=== PATIENT | male | born 1955 | race Caucasian/White ===

== ENCOUNTER → 2023-12-22 08:32 | Outpatient (REF) | payer BC, SELFPAY | LOC: HWRAD 08:32 | PROVIDERS: ATTENDING PHYSICIAN Surgery | DX: Z86.010 Personal history of colon polyps (principal) ==

== ENCOUNTER 2024-05-17 06:50 | Day surgery (SDC) | payer BC, SELFPAY ==
[2024-04-30 10:24] VITALS: BMI 35.8
[2024-04-30 10:43] LABS: Hematocrit 43.9 % (39.0-52.0); Hemoglobin 14.6 g/dL (13.0-18.0); Mean Corp Hgb Conc. 33.3 g/dL (33.0-37.0); Mean Corpuscular Volume 87.3 fL (80.0-94.0); Mean Platelet Volume 11.1 fL (7.4-10.4); Platelet Count 274 10^3/uL (130-400); Red Blood Cell Count 5.03 10^6/uL (4.70-6.10); Red Cell Dist. Width 12.9 % (11.5-14.5); White Blood Cell Count 9.4 10^3/uL (4.8-10.8)
[2024-04-30 11:18] LABS: Blood Urea Nitrogen 16 mg/dl (9-20); Carbon Dioxide 24 mmol/L (22-30); Chloride 105 mmol/L (98-107); Estimated Creatinine Clearance 113 ml/min; Glucose 134 mg/dl (70-99); Potassium 4.8 mmol/L (3.5-5.1); Sodium 142 mmol/L (135-145); eGFR > 60.00
[2024-05-17] VITALS (15 sets, daily range): BP systolic 0–157; BP diastolic 64–87; BMI 35.8; BMI 36.4
[2024-05-17] MEDS: TYLENOL 1000 MG PO (13:31)
--- NOTE | 2024-05-17 13:48 | HP.FOC2 ---
Focused History & Physical
Chief Complaint
HPI:
Chief Complaint: Right lower quadrant incisional hernia
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 Postoperative
left calf DVT. Postoperative right lower quadrant subcutaneous abscess treated with IR guided percutaneous drainage and I&D. Subsequent takedown loop ileostomy and primary closure parastomal hernia site 06/19/2023 which she recovered uneventfully
from.
Has had a few month history of swelling in the right lower quadrant at his previous ostomy site. It has increased in size since noticing. Increasingly uncomfortable but no significant pain. Utilizes a binder to help support it. CT imaging
confirms approximately 5 cm x 4 cm right lower quadrant incisional hernia. Presents today for scheduled operative correction.
Relevant Past Medical History: Other (GABRIEL-not using CPAP, hypertension, osteoarthritis right knee, BPH, Neda's syndrome, history of PE status post right total knee, history of DVT)
Relevant Social History: Negative
Relevant Family History: Negative
Relevant Past Surgical History: Positive for (Right total knee replacement, cataracts, detached retina surgery, sigmoidectomy with diverting loop ileostomy, reversal of loop ileostomy)
Review of Systems
Review of Pertinent Systems: All Systems Negative
Medication
See Medication form for detailed medications: Yes
Medication List (including Herbals & OTC):
terazosin 2 mg capsule 2 mg PO HS bph ##0 02/05/23
Medications Reviewed: Yes
Allergies and Reactions
Patient has Allergies: Yes
Noted Allergies and Reactions:
Allergy/AdvReac Type Severity Reaction Status Date / Time
lisinopril Allergy Intermediate Cough Verified 05/17/24 13:28
Pertinent Physical Exam
All Other Systems: Negative
Head/Neck: Normal
Lungs: Normal
Heart: Normal
Abdomen: Other (Right lower quadrant incisional hernia)
Extremities: Normal
Neurological: Normal
Diagnosis / Assessment
68-year-old male presenting for scheduled operative correction right lower quadrant incisional hernia
Plan / Procedure
Robotic assisted laparoscopic repair right lower quadrant incisional hernia with mesh
Anesthesia/Sedation to be done by Anesthesia Provider: Yes
[2024-05-17] MEDS: LOVENOX 40 MG SC (13:51)
--- NOTE | 2024-05-17 13:52 | W.SUR.PREOP ---
Pre-Operative Surgical Note
-
I have examined this patient prior to the performance of the scheduled procedure.
The patient's condition is unchanged from the time of the current History and
Physical and the patient is able to undergo the scheduled procedure.
--- NOTE | 2024-05-17 18:16 | W.IMMPOSTOP ---
Addendum entered and electronically signed by Franklin Smith MD 05/19/24 07:49:
#[id number]
Original Note:
Surgical Immed Post Op Note
-
Primary Surgeon: Luis
Assisting Surgeon: Hue Rodriguez PA-C
Pre-op Diagnosis: Right lower quadrant incisional hernia
Post-op Diagnosis: Right lower quadrant incisional hernia; periumbilical incisional hernias (total hernia spanning length of 12 cm including fascial bridge); right lower quadrant abdominal wall adhesions and hernia sac adhesions.
Procedure Performed: Robotic assisted laparoscopic lysis of adhesions (encompassing 1 hour of additional operative time)
Robotic assisted laparoscopic right transversus abdominis myofascial release
Robotic assisted laparoscopic retromuscular mesh repair incisional hernias; Bard soft mesh 20 x 20 cm
Anesthesia Type: GETA +0.25% Marcaine
Specimen / Cultures: None
Estimated Blood Loss: 16 mL
Complications: None immediate
Operative Findings: Right lower quadrant small bowel adhesions entirely covering hernia, hernia sac and surrounding abdominal wall. Careful lysis to reduce hernia contents and free abdominal wall from adhesions for hernia added 1 full hour of
additional operative time within expectations of this typical procedure. Incisional hernia at old ostomy site measured 6 cm vertically and 4 cm in width. There was approximately a 5 cm bridge between this and multiple small fascial defects in the
periumbilical region which added an additional 3 cm. Altogether these defects encompassed a total length of 12 cm. Fascial defects all closed with 0 PDS STRATAFIX symmetric suture in running continuous manner. Posterior sheath at right lower
quadrant incisional hernia closed with 2-0 PDS STRATAFIX spiral.
Right sided transversus abdominis myofascial release to allow for reduced closure of right lower quadrant incisional hernia and underlay mesh repair.
Bard soft mesh 20 x 20 cm in the retrorectus and submuscular underlay location. Secured with numerous interrupted 2-0 Vicryl suture centrally and to medial and lateral borders.
Peritoneal flap closed with 2-0 Monocryl STRATAFIX spiral.
Drains: 19 Armand into the retrorectus space.
Plan: PRN analgesics and antiemetics
DC Batista in a.m.
Lovenox administered preoperatively for VTE prophylaxis
Advance diet as tolerated monitoring for possible signs of ileus
Maintain JUAN
Patient's son updated postoperatively via phone call
[2024-05-17] MEDS: LR 1000 IV (19:00)
[2024-05-17] MEDS: ACUVAIL 1 DROPS OPHTH (19:25)
--- NOTE | 2024-05-17 19:32 | SUR.PHASEI ---
Dr. Nguyen notified pt complaining of right eye irritation. Ketorolac eye drop ordered to right eye and administered as ordered.
[2024-05-17] MEDS: DILAUDID 0.5 MG IV (21:02)
[2024-05-17] MEDS: ACULAR 0.5% EYE DROPS 1 DROP OPHTH (21:03)
--- NOTE | 2024-05-17 21:30 | PTCARENOTE ---
Report received from Ellyn in PACU. Pt received in hospital bed AAOx3, c/o pain and irritation to the R eye, denies abd pain and nausea at this time. Pt tolerating 3L O2 NC with SpO2 100%, does not wear O2 at home but does report a hx of GABRIEL without
CPAP/BiPAP, weaned to 2L O2 NC with SpO2 97%. +bowel sounds x4 quadrants, abd round and tender. 3 lap sites present, approximated with dermabond intact. Batista catheter in place draining clear yellow urine. TEDs/SCD's in place. LR infusing @ 120mL/hr
per order. Remainder of assessment as documented. Pt ordered clear liquid diet, tolerating ice water/red dipesh intake without N/V/abd pain. Pt and son at the bedside updated on POC. Oriented to unit and call vanegas, resting comfortably in bed at this
time.
[2024-05-17] MEDS: HYTRIN 2 MG PO (23:17)
[2024-05-18 00:15] VITALS: BP 133/66
[2024-05-18] MEDS: DILAUDID 1 MG IV (01:21)
[2024-05-18 02:15] VITALS: BP 96/53
[2024-05-18] MEDS: LR 1000 IV (03:38)
[2024-05-18 03:46] VITALS: BP 104/61
[2024-05-18 06:40] LABS: Hematocrit 42.5 % (39.0-52.0); Hemoglobin 13.8 g/dL (13.0-18.0); Mean Corp Hgb Conc. 32.5 g/dL (33.0-37.0); Mean Corpuscular Hgb 28.4 pg (27.0-31.0); Mean Corpuscular Volume 87.4 fL (80.0-94.0); Mean Platelet Volume 10.8 fL (7.4-10.4); Platelet Count 256 10^3/uL (130-400); Red Blood Cell Count 4.86 10^6/uL (4.70-6.10); Red Cell Dist. Width 13.3 % (11.5-14.5); White Blood Cell Count 13.7 10^3/uL (4.8-10.8)
[2024-05-18 06:59] LABS: Blood Urea Nitrogen 17 mg/dl (9-20); Calcium 9.3 mg/dl (8.4-10.2); Carbon Dioxide 23 mmol/L (22-30); Chloride 105 mmol/L (98-107); Estimated Creatinine Clearance > 125 ml/min; Glucose 123 mg/dl (70-99); Sodium 140 mmol/L (135-145); eGFR > 60.00
--- NOTE | 2024-05-18 07:12 | W.PN.GS2 ---
Today's Communication / Plan
-
`
Assessment / Plan
-
Assessment: 68 y/o male POD#1 s/p RAL ZIGGY, right sided TAR, retromuscular repair incisional hernias (12cm total length) with mesh
AFVSS
doing well post op
JUAN with typical character and quanitity overnight
Plan: multimodal pain med options
clear liquid diet and advance as tolerated monitoring for signs of ileus
OOBTC/ambulate
JUAN - will be d/c'd with JUAN in place
mcgrath out dtv
lovenox/scds/ambulation for VTEp - will d/c home on 10days eliquis 2.5mg BID d/t prior DVT hx x2
possible d/c home later today vs tomorrow
Subjective Data
-
Date of Service: May 18, 2024
pt seen and examined
postop pain controlled well
no nausea, ordered clears for breakfast
mcgrath out this AM
Objective Data
-
Intake and Output
05/17/24 05/18/24 05/19/24
06:59 06:59 06:59
Intake Total 1950 / 1950
Output Total 825 / 825
Balance 1125 / 1125
Intake:
Oral fluids 480 / 480
IV fluids (Total) 1470 / 1470
LR 120 / 120
NSS 150 / 150
Output:
Drain Output (Total) 0 / 0
Right Abdomen [facility] 0 / 0
Urine, Mcgrath 825 / 825
Vital Signs
Temp Pulse Resp BP Pulse Ox
97.9 F 66 16 104/61 93
05/18/24 03:46 05/18/24 03:46 05/18/24 03:46 05/18/24 03:46 05/18/24 03:46
Lab Results
05/18/24 05:53
05/18/24 05:53
Calcium 9.3 mg/dl (8.4-10.2) 05/18/24 05:53
Physical Exam
-
NAD AAOx3
ABD: soft, ND, mild TTP right sided and midline, no R/R/G
incisions with glue dressings
JUAN with SSF-bloody
[2024-05-18] MEDS: COLACE 100 MG PO (07:18)
[2024-05-18] MEDS: ACULAR 0.5% EYE DROPS 1 DROP OPHTH ×2 (07:18→12:53)
[2024-05-18 07:23] VITALS: BP 128/75
[2024-05-18 07:45] VITALS: BMI 36.4
--- NOTE | 2024-05-18 13:17 | CM ---
Addendum entered by Tracee Marie 05/18/24 13:21:
PCP: Jose Pereyra
Pharmacy: [address], [place]
Original Note:
Patient seen at bedside
DX: s/p SONIA ANDERSONA, right sided TAR, retromuscular repair incisional hernias
Lives in a 3 story home alone, 6 steps to enter, 13 steps to second floor
PLOF: Ambulating without deviceD
Denies DME
Options reviewed for [facility]N - prefer [facility]
Referral placed in [facility]. Notified Stephanie liaison
PLAN: Home, [facility]
--- NOTE | 2024-05-18 14:54 | VNURNOTE ---
Home Health Liaison met with patient at bedside to discuss [facility] nurse/therapy, visits, schedule and homebound status. Patient is agreeable and understands that visits at home will be 2-3 x per week to assess and teach medical management, drain care.
[facility] brochure provided with contact information. Patient is aware that [facility] will contact them for start of care in 1-2 days after discharge from .
[facility] referral completed in [facility].
[2024-05-18 15:20] VITALS: BP 139/74
--- NOTE | 2024-05-18 15:28 | W.PN.SURGUPD ---
Surgical Update
Surgical Update
Patient seen in follow-up this afternoon. Postoperative pain adequately controlled without narcotics today.
Tolerating dietary advancement
No nausea, no abdominal bloating or distention
Not passing flatus but feels some digestive grumbling
Patient's preference is for discharge home today
JUAN remains serosanguineous not overly bloody
DC home
JUNA care instructions provided
Given previous history of DVT will discharge with 10-day course of prophylactic Eliquis dosing (patient aware will pay [id number] medication)
Follow-up with myself in 1 to 2 weeks when daily outputs on JUAN diminished to 20 mL every 24 hours for 2 days
--- NOTE | 2024-05-18 15:33 | W.DS.TRANS ---
DC Summary - [employer]
-
Discharge Instructions:
Discharge Diagnosis/Procedures Incisional hernias; robotic assisted
laparoscopic repair incisional hernias with mesh
, lysis of adhesions
Diet As tolerated,Regular
Additional Diets Smaller meals initially after surgery as
abdominal bloating and distention are common for
the first few days
Activity No strenuous activity
Additional Activity No lifting over 20 pounds for 6 weeks
postoperatively
Driving Restrictions No driving for 2 to 3 days or if using narcotics
Bathing Restrictions OK to Shower
Other Services VN
Wound Care Glue at surgical sites typically peels off in 2
to 3 weeks. Keep JUAN to bulb suction. Empty 2-3
times a day, measure drain outputs and keep
paper record. Dry gauze dressing at skin exit
site from drain, change daily and as needed.
Instructions: [facility] Drain
How to Keep Track of Your Drainage
Stand-Alone Forms:
Changes to Home Medications: No
Discharge Medications:
DC Medications w/original date entered in [employer]
terazosin 2 mg capsule 2 mg PO HS bph ##0 02/05/23
acetaminophen 500 mg tablet (Tylenol Extra Strength) 1,000 mg (2 x 500 mg) PO Q6HPRN PRN mild pain #1 tab 05/18/24
apixaban 2.5 mg tablet (Eliquis) 2.5 mg PO BID 10 days #20 tabs 05/18/24
oxycodone 5 mg tablet 5 mg PO Q4HPRN PRN breakthrough/severe pain #7 tabs 05/18/24
polyethylene glycol 3350 17 gram/dose oral powder (Miralax) 4 g PO DAILY PRN Constipation #119 grams 05/18/24
Home Medication Changes
Pending Results: No
== END 2024-05-18 16:40 | disposition home or self-care (01) ==
LOC: SDS 06:50
PROVIDERS: ATTENDING PHYSICIAN Surgery; FAMILY PHYSICIAN Nurse Practitioner Family; OTHER PHYSICIAN Internal Medicine Hematology & Oncology
DX: K43.2 Incisional hernia without obstruction or gangrene (principal); K66.0 Peritoneal adhesions (postprocedural) (postinfection)
CPT/HCPCS: 49593; 36415; 80048; 85027; 93005; C1781

== ENCOUNTER 2024-08-09 06:02 | Day surgery (SDC) | payer BC, SELFPAY ==
[2024-08-09 06:10] VITALS: BMI 34.9
[2024-08-09 06:20] VITALS: BP 147/94
[2024-08-09 06:25] VITALS: BMI 34.9
[2024-08-09] MEDS: NORMOSOL-R/PLASMALYTE-A 1000 IV (06:31)
[2024-08-09] MEDS: TYLENOL 1000 MG PO (06:31)
--- NOTE | 2024-08-09 06:45 | HP.FOC2 ---
Focused History & Physical
Chief Complaint
HPI:
Chief Complaint: Lipoma
HPI / Indication for Planned Procedure: Patient is a 68-year-old male with history of a visible bump/swelling over the right scapular area. Present for many years and slowly increasing in size. Presents today for surgical excision.
Relevant Past Medical History: Other (GABRIEL, hypertension, osteoarthritis, BPH, history of retinal detachment, Neda's syndrome, history PE/DVT, history diverticulosis, elevated PSA)
Relevant Social History: Negative
Relevant Family History: Negative
Relevant Past Surgical History: Positive for (Arthroscopic knee surgeries, cataracts, right total knee replacement, sigmoidectomy with diverting loop ileostomy, reversal of ileostomy, robotic incisional hernia repair)
Review of Systems
Review of Pertinent Systems: All Systems Negative
Medication
See Medication form for detailed medications: Yes
Medication List (including Herbals & OTC):
terazosin 2 mg capsule 2 mg PO HS bph ##0 02/05/23
Medications Reviewed: Yes
Allergies and Reactions
Patient has Allergies: Yes
Noted Allergies and Reactions:
Allergy/AdvReac Type Severity Reaction Status Date / Time
lisinopril AdvReac Cough Verified 08/09/24 06:27
Pertinent Physical Exam
All Other Systems: Negative
Head/Neck: Normal
Lungs: Normal
Heart: Normal
Abdomen: Normal
Extremities: Normal
Neurological: Normal
Other: Soft mobile subcutaneous mass in the right posterior back/scapular area 5cm
Diagnosis / Assessment
68-year-old male with right posterior back/scapular subcutaneous lipoma
Plan / Procedure
Excision subcutaneous lipoma
Anesthesia/Sedation to be done by Anesthesia Provider: Yes
[2024-08-09 07:56] VITALS: BP 130/88
[2024-08-09 08:01] VITALS: BP 146/89
--- NOTE | 2024-08-09 08:10 | W.IMMPOSTOP ---
Addendum entered and electronically signed by Franklin Smith MD 08/09/24 08:17:
#[id number]
Original Note:
Surgical Immed Post Op Note
-
Primary Surgeon: Franklin Smith MD
Assisting Surgeon: REBECA Lopez
Pre-op Diagnosis: Right scapular subcutaneous lipoma
Post-op Diagnosis: Right scapular subcutaneous lipoma; 4 cm
Procedure Performed: Excision of right scapular subcutaneous lipoma
Anesthesia Type: MAC +1% lidocaine/0.25% Marcaine with epi
Specimen / Cultures: Lipoma
Estimated Blood Loss: 4 mL
Complications: None immediate
Operative Findings: Right scapular subcutaneous lipoma adjacent to trapezius muscle. Well encapsulated, excised in its entirety. 4 cm maximal dimension. Multilayer closure.
[2024-08-09 08:15] VITALS: BP 153/86
[2024-08-09 08:30] VITALS: BP 155/83
== END 2024-08-09 09:00 | disposition home or self-care (01) ==
LOC: SDS 06:02
PROVIDERS: ATTENDING PHYSICIAN Surgery
DX: D17.1 Benign lipomatous neoplasm of skin and subcutaneous tissue of trunk (principal); G47.33 Obstructive sleep apnea (adult) (pediatric); I10 Essential (primary) hypertension; M19.90 Unspecified osteoarthritis, unspecified site; N40.0 Benign prostatic hyperplasia without lower urinary tract symptoms; Z86.718 Personal history of other venous thrombosis and embolism; Z88.8 Allergy status to other drugs, medicaments and biological substances
CPT/HCPCS: 21931; 88304

== ENCOUNTER 2024-12-19 08:10 | Emergency (ER) | payer BC, MEDICARE, SELFPAY ==
[2024-12-19 08:12] VITALS: BP 125/84
[2024-12-19 08:20] VITALS: BMI 37.5
--- NOTE | 2024-12-19 08:30 | ED.GENMED ---
History of Present Illness
General
Chief Complaint: Breathing Problem
Source: patient
Exam Limitations: none
Time Seen by Provider: 12/19/24 08:17
Nursing documentation reviewed up to this point in time: agreed with
History of Present Illness
History of Present Illness:
see mdm
Past History
Past History
ED Past Medical History: Cancer (Skin), HTN and Other (PE/DVT, Sleep apnea, Diverticulitis, )
ED Past Surgical History: Bowel resection (with Ileostomy), Orthopedic (Right knee replacemet) and Other (Cataract surgery right with retina torn, Intestinal stent)
Social History
Tobacco: Former smoker
Alcohol: None
Drug: None
Personal:
Living: with family
Employment: Employed
Phy Exam
Physical Exam
Physical Exam:
GENERAL: Alert , in no apparent distress
EYE: pupils equal and reactive
NECK: Supple
ENT: o/p clr, mmm.
CARDIAC: Regular rate and rhythm .
LUNGS: No respiratory distress, pleuritic pain with splinting on the right side with a deep breath, crackles in the right base, no cough
ABDOMEN: Soft, without focal tenderness, no r/g, no cvat, normal bowel sounds
NEUROLOGICAL: Alert and oriented, no focal neuro deficits
SKIN: Warm and dry, skin intact.
MUSCULOSKELETAL: No edema, well perfused. neg sam's sign
PSYCH: Normal and appropriate interaction.
Scores
Heart Failure Risk
Heart Failure Risk Score: Not Applicable
Course
Orders/Labs/Results
Orders:
Orders
12/19/24 08:15
Electrocardiogram (*1) Urgent
Reason for Study: Shortness of Breath
EKG- Treatment ONCE
12/19/24 08:26
CT Chest PE Study Urgent
Comment:
Reason For Exam: pleuritic R cp x 2 days; h/o PE
US Periph Venous LOWER Ext Rob Urgent
Comment:
Reason For Exam: calf pain, h/o dvt
12/19/24 08:37
Complete Blood Count/With Diff Urgent
Comprehensive Metabolic Panel Urgent
NT-proBNP Urgent
PTT Urgent
Prothrombin Time Urgent
Troponin I Urgent
12/19/24 09:05
COVID-19 Antigen Urgent
Source: Nasal Swab
12/19/24 10:59
Apixaban [Eliquis] 10 mg PO NOW STA
Abnormal Lab Results
12/19/24
08:37
WBC 13.8 H 10^3/uL
(4.8-10.8)
MPV 10.7 H fL
(7.4-10.4)
Abs Immat Gran (auto) 0.1 H 10^3/uL
(0-0.05)
Absolute Neuts (auto) 10.5 H 10^3/uL
(1.4-6.5)
Absolute Monos (auto) 1.4 H 10^3/uL
(0.1-0.6)
Neutrophils % 75.8 H %
(42.2-75.2)
Lymphocytes % 12.9 L %
(20.5-51.1)
Monocytes % 10.1 H %
(1.7-9.3)
Chloride 110 H mmol/L
(98-107)
Carbon Dioxide 21 L mmol/L
(22-30)
Glucose 149 H mg/dl
(70-99)
Total Bilirubin 1.5 H mg/dl
(0.2-1.3)
12/19/24 08:37
12/19/24 08:37
Vital Signs
Initial and Last Documented VS:
Initial Vital Signs
Temp Pulse Resp BP Pulse Ox
37.1 C 98 18 125/84 94
12/19/24 08:12 12/19/24 08:12 12/19/24 08:12 12/19/24 08:12 12/19/24 08:12
Last Documented Vital Signs
Temp Pulse Resp BP Pulse Ox
37.1 C 83 21 128/79 93
12/19/24 08:12 12/19/24 11:45 12/19/24 11:45 12/19/24 11:00 12/19/24 11:45
MDM/Problems Addressed
Differential Diagnosis Includes:
see mdm
MDM/Problems Addressed:
Note:
CHIEF COMPLAINT(S)
Shortness of breath and pleuritic chest pain.
HISTORY OF PRESENT ILLNESS
The patient is a 69-year-old male with a past medical history significant for pulmonary embolism and deep vein thrombosis, presenting with acute onset shortness of breath and pleuritic chest pain. The patient reports that this episode is similar to
previous experiences when he had a pulmonary embolism. The pain worsens with deep breathing but is minimal to none at rest. The onset was recent, and pain intensity is rated at 1/10 at rest and increases significantly with deep inspiration. The
patient describes a mild cough and had a low-grade fever last night, for which he took ibuprofen this morning. He denies recent surgery but reports increased driving recently. He has a history of blood clots in the lung following knee surgery
approximately four years ago and a clot in the leg after intestinal surgery around the same period; both were managed with anticoagulation therapy, specifically apixaban (Eliquis), for six months. The patient was tested for clotting disorders
previously, but no definitive results were mentioned. He has no known heart disease, has not had cardiac tests, and does not follow with a hand cooper helper.
ADDITIONAL HISTORY OBTAINED FROM SOURCES OTHER THAN THE PATIENT
According to the patient, he has a history of smoking cigars currently and previous cigarette smoking but quit approximately in his 30s. No recent alcohol use was reported.
CHRONIC MEDICAL CONDITIONS SIGNIFICANTLY AFFECTING CARE
Chronic conditions affecting care: history of pulmonary embolism and deep vein thrombosis.
ALLERGIES
No known drug allergies.
PAST MEDICAL HISTORY
History of pulmonary embolism and deep vein thrombosis.
PAST SURGICAL HISTORY
Right lung pulmonary embolism post-knee surgery and deep vein thrombosis post-bowel resection.
SOCIAL HISTORY
Current cigar smoker, ex-cigarette smoker, no alcohol use.
REVIEW OF SYSTEMS
- Respiratory: Shortness of breath, pleuritic chest pain, minimal cough, no significant sputum production.
- General: Recent fever.
- Cardiovascular: No known history of heart disease.
PHYSICAL EXAM
- Nursing notes reviewed and vital signs reviewed.
- Respiratory: Breath sounds with R lower lobe crackles, presumption of possible fluid presence.
no edema in legs
neg sam's sign
resting comfortably; no tachypnea
PLAN
The patient will undergo a CT scan of the chest to evaluate for potential pulmonary embolism or other intrathoracic pathology, such as pleural effusion. Assessment for deep vein thrombosis will also be considered.
DIFFERENTIAL DIAGNOSIS
The Differential Diagnosis includes, in no particular order and is not limited to:
1. Pulmonary embolism
2. Pneumonia
3. Pleuritis
4. Costochondritis
5. Pneumothorax
6. Myocardial infarction
7. Congestive heart failure
8. Pleural effusion
9. Upper respiratory tract infection
Patient CT reported right pulmonary artery segmental PE. Patient is hemodynamically stable, no evidence of right heart strain, normal troponin negative BNP, normal pulse ox. He is not in any distress. I reviewed this case with photoengraver apprentice
gila his Pasi score is low risk. Patient can be treated with Eliquis as an outpatient and have close pulmonary follow-up. It sounds as if he will require anticoagulation long-term.
Patient will return for any significant worsening symptoms
*Pulse Oximetry
SaO2: 95
Oxygen Mode of Delivery: Room air
*Critical Care Note
Total Time (30-74mins, 75-104mins- exclusive of procedures): Not Applicable
ED Attending Note
-
Portions of this chart may have been created with voice recognition software.� Occasional wrong word or��sound alike� substitutions may have occurred due to the inherent limitations of voice recognition software.
Discharge Plan
Departure
Patient Disposition: Home (Routine Discharge)
Date of Disposition: 12/19/24
Time of Disposition: 10:58
Patient with high blood pressure during this ER visit?: No
Condition: Fair
Discharge Problem:
Pulmonary embolism
Instructions: ED Low Risk PE
Prescriptions:
New
Eliquis DVT-PE Treat 30D Start 5 mg (74 tabs) tablets,dose pack
See Rx Instructions .ROUTE .COMPLEX Qty: 74 0RF
Rx Instructions:
orally per package directions
No Action
terazosin 2 mg Capsule
2 mg PO HS Qty: 0
naproxen sodium [Aleve] 220 mg Tablet
220 mg PO BID PRN (Reason: fever/pain)
Referrals:
Christopher Pereyra CRNP [Family Provider, Family Practice]
Activity Restrictions/Additional Instructions:
You have a blood clot in your right lower lung. You need to take Eliquis as directed and you will likely need to take this long-term. You can call your primary doctor for follow-up as well as a ornamental ironworker but you also should be receiving a phone
call to schedule follow-up appointment with the photoengraver apprentice. Return for any concerns like chest pain that is worse, worsening shortness of breath, passing out, or any concerns
Interventions
Interventions:
*Risk Screen - Suicide Last Done: 12/19/24 08:12
*General Assessment Last Done: 12/19/24 08:12
*Neglect/Abuse Screening Last Done: 12/19/24 08:12
*ED- Fall Risk Assessment Last Done: 12/19/24 12:14
*ED COVID-19 Vaccine History Last Done: 12/19/24 12:14
*Nursing Disposition Last Done: 12/19/24 12:17
ED- Cardiac Assessment Last Done: 12/19/24 08:27
ED- Pulmonary Assessment Last Done: 12/19/24 08:27
Discharge Date and Time
Discharge Date/Time: 12/19/24 12:18
Print Language: BELIZEAN
[2024-12-19 08:41] LABS: % Basophils 0.3 % (0-2); % Eosinophils 0.5 % (0-6); % Immature Granulocytes 0.4 % (0-0.5); % Lymphocytes 12.9 % (20.5-51.1); % Monocytes 10.1 % (1.7-9.3); % Neutrophils 75.8 % (42.2-75.2); Absolute Eosinophils 0.1 10^3/uL (0-0.7); Absolute Immature Granulocytes 0.1 10^3/uL (0-0.05); Absolute Lymphocytes 1.8 10^3/uL (1.2-3.4); Absolute Monocytes 1.4 10^3/uL (0.1-0.6); Absolute Neutrophils 10.5 10^3/uL (1.4-6.5); Hematocrit 47.8 % (39.0-52.0); Hemoglobin 16.4 g/dL (13.0-18.0); Mean Corp Hgb Conc. 34.3 g/dL (33.0-37.0); Mean Corpuscular Hgb 29.4 pg (27.0-31.0); Mean Corpuscular Volume 85.8 fL (80.0-94.0); Mean Platelet Volume 10.7 fL (7.4-10.4); Nucleated Red Blood Cells % 0 % (-); Platelet Count 195 10^3/uL (130-400); Red Blood Cell Count 5.57 10^6/uL (4.70-6.10); Red Cell Dist. Width 13.4 % (11.5-14.5); White Blood Cell Count 13.8 10^3/uL (4.8-10.8)
[2024-12-19 08:50] LABS: PT 14.5 Sec (11.4-14.6)
[2024-12-19 08:51] LABS: APTT 28.7 Sec (23.4-35.0)
[2024-12-19 09:04] VITALS: BP 117/106
[2024-12-19 09:06] LABS: ALT (SGPT) 21 U/L (0-50); AST (SGOT) 21 U/L (17-59); Albumin 4.1 g/dl (3.5-5.0); Alkaline Phosphatase 95 U/L (38-126); Blood Urea Nitrogen 15 mg/dl (9-20); Carbon Dioxide 21 mmol/L (22-30); Chloride 110 mmol/L (98-107); Estimated Creatinine Clearance 114 ml/min; Glucose 149 mg/dl (70-99); Potassium 4.4 mmol/L (3.5-5.1); Sodium 138 mmol/L (135-145); Total Bilirubin 1.5 mg/dl (0.2-1.3); Total Protein 7.3 g/dl (6.3-8.2); eGFR > 60.00
[2024-12-19 09:17] LABS: NT-proBNP 79.8 pg/ml; Troponin I < 0.012 ng/ml
[2024-12-19 09:53] LABS: COVID-19 Antigen Negative (Negative)
[2024-12-19 10:00] VITALS: BP 135/83
[2024-12-19 11:00] VITALS: BP 128/79
[2024-12-19] MEDS: ELIQUIS 10 MG PO (11:47)
== END 2024-12-19 12:18 | disposition home or self-care (01) ==
LOC: EMR 08:10
PROVIDERS: Physician Assistant; EMERGENCY PHYSICIAN Emergency Medicine; FAMILY PHYSICIAN Nurse Practitioner Family
DX: I26.99 Other pulmonary embolism without acute cor pulmonale (principal); Z11.52 Encounter for screening for COVID-19; Z86.718 Personal history of other venous thrombosis and embolism; Z87.891 Personal history of nicotine dependence; Z86.711 Personal history of pulmonary embolism
CPT/HCPCS: 99285; 71275; 80053; 83880; 84484; 85025; 85610; 85730; 87811; 93005; 93970; Q9967